=== PATIENT | female | born 1970 ===

== ENCOUNTER 2018-01-16 08:15 | Outpatient (CLI) | payer OTHER ==
[~2018-01-16] VITALS: Ht 154.9 cm; Wt 72.6 kg
[2018-01-16] MEDS ORDERED: MUCINEX600 MG PO (10:01)
[2018-01-16] MEDS ORDERED: LIPO-FLAVONOID1 EACH PO (10:01)
== END 2018-01-16 08:30 | disposition home or self-care (01) ==
LOC: OFIC 805 08:15
DX: J01.80 Other acute sinusitis (principal); R42 Dizziness and giddiness

== ENCOUNTER 2018-02-06 08:03 | Outpatient (CLI) | payer OTHER ==
[~2018-02-06] VITALS: Ht 152.4 cm; Wt 68.0 kg
[~2018-02-06 08:03] MED LIST: LIPO-FLAVONOID1 EACH PO; MUCINEX600 MG PO
[2018-02-06] MEDS ORDERED: MUCINEX600 MG PO (10:39)
[2018-02-06] MEDS ORDERED: CLINDAMYCIN HC300 MG PO (10:39)
== END 2018-02-06 08:15 | disposition home or self-care (01) ==
LOC: OFIC 805 08:03
DX: J34.2 Deviated nasal septum (principal); J32.8 Other chronic sinusitis; R42 Dizziness and giddiness

== ENCOUNTER 2018-02-27 08:28 | Outpatient (CLI) | payer OTHER ==
[~2018-02-27] VITALS: Ht 152.4 cm; Wt 68.0 kg
[~2018-02-27 08:28] MED LIST changes: +CLINDAMYCIN HC300 MG PO
== END 2018-02-27 08:45 | disposition home or self-care (01) ==
LOC: OFIC 805 08:28
DX: J34.2 Deviated nasal septum (principal); J32.8 Other chronic sinusitis

== ENCOUNTER 2018-04-10 08:02 | Outpatient (CLI) | payer OTHER ==
[~2018-04-10] VITALS: Ht 152.4 cm; Wt 68.0 kg
== END 2018-04-10 08:15 | disposition home or self-care (01) ==
LOC: OFIC 805 08:02
DX: J32.8 Other chronic sinusitis (principal); J34.2 Deviated nasal septum

== ENCOUNTER 2018-07-31 09:06 | Outpatient (CLI) | payer OTHER ==
[~2018-07-31] VITALS: Ht 152.4 cm; Wt 68.0 kg
== END 2018-07-31 09:20 | disposition home or self-care (01) ==
LOC: OFIC 805 09:06
DX: J32.8 Other chronic sinusitis (principal); J34.2 Deviated nasal septum; R42 Dizziness and giddiness